=== PATIENT | male | born 1935 | race African-American/Black ===

== ENCOUNTER → 2021-11-05 | Day surgery (SDC) | payer MEDICARE, OTHER ==
[~2021-11-05] MED LIST: ACETAMINOPHEN 500 MG TABLET PO PRN; ALBU2.5V8 IH; ASPI81TA59 PO; ATOR40TA59 PO; BALANCED SALT IRRIG SOLN NO.2 500 ML IO ONE; BENZONATATE 100 MG CAPSULE. PO PRN; BRIMONIDINE 0.2% OPHTH SOLUTION 5ML BOTTLE. OS ONE; CEFUROXIME OPHTH 4 MG/0.4 ML SYRINGE. OS ONE; CHONDROIT-SOD-HYALURONATE KIT. OS ONE; HYDR12.58 PO; IBUPROFEN 200 MG TABLET PO PRN; LIDO/EPI IN BSS OPHTH 2.7 ML SYRINGE. OS ONE; LIDOCAINE 2% JELLY 6ML IN APPLICATOR. ONE; LIDOCAINE 2% JELLY 6ML IN APPLICATOR. OS PRN; MOXIFLOXACIN 0.5% OPHTH SOLUTION 3ML BOTTLE. OS SCH; PHENYLEPHRINE 10% OPHTH SOLUTION 5ML BOTTLE. OS PRN; POVIDONE-IODINE 5% OPHTH SOLUTION 30ML BOTTLE. OS ONE; POVIDONE-IODINE 5% OPHTH SOLUTION 30ML BOTTLE. OS PRN; PROPARACAINE 0.5% OPHTH SOLUTION 15ML BOTTLE. OS ONE; PROPARACAINE 0.5% OPHTH SOLUTION 15ML BOTTLE. OS PRN; TERA5CAP3 PO; prednisoLONE ACETATE 1% OPHTH SUSPENSION 5ML BOTTLE. OS ONE
[2021-11-05] MEDS: PHENYLEPHRINE 2.5% OPHTH SOLUTION 2ML BOTTLE. OS SCH ×3 (07:38→07:56)
[2021-11-05] MEDS: TROPICAMIDE 1% OPHTH SOLUTION 15ML BOTTLE. OS SCH ×3 (07:38→07:56)
[2021-11-05] MEDS: KETOROLAC TROMETHAMINE 0.5% OPHTH SOLUTION BOTTLE. OS SCH ×2 (07:38→07:45)
[2021-11-05] MEDS: TOBRAMYCIN 0.3% OPHTH SOLUTION 5ML BOTTLE. OS SCH ×2 (07:39→07:45)
--- NOTE | 2021-11-05 08:06 | NUR ---
patient noted to have irregular heart rhythm, patient has no symptoms. Notified Anesthesia provider, ordered EKG. Results given to Anesthesia. Provider stated patient should not receive sedation. Patient informed educated about procedure without sedation and is agreeable to proceed. Patient educated regarding signs and symptoms of cardiac insufficiency. Patient verbalized understanding. Patient instructed to make appointment with PCP and report to ED for any signs and symptoms.
--- NOTE | 2021-11-05 09:19 | PDOC4 ---
Cataract i-Stent Injection Surgeon: Zion Dennis MD Date of Procedure: 11/05/21 Preop Diagnosis: Visually significant cataract: Left Eye OS Primary open angle glaucoma: Left eye Postop Diagnosis: Postop Diagnosis: Same Procedure: Phaco w/ posterior chamber IOL: Left Eye OS iStent Inject Trabecular Micro: Left eye Anesthesia: Deep forniceal periocular 2% Lidocaine jelly Ashlee/retro bulbar block with 2% Lidocaine with 0.5% Marcaine Description of Procedure: The risks, benefits, and alternatives were discussed with the patient who elected to proceed. Informed consent was obtained in writing and placed in the chart After anesthetizing the eye topically, the patient was taken to the operating room, and the operative eye was prepped and draped in the usual sterile fashion for ocular surgery. A wire lid speculum was placed. A 1-mm clear corneal paracentesis incision was created with the sideport blade at a position three clock hours clockwise from the temporal cornea. Then 1% non-preserved Lidocaine with epinephrine was injected into the anterior chamber followed by viscoelastic. Cotton-tipped applicators were used to stabilize the globe, and a 2.4 mm keratome was used to create a self-sealing incision in the clear cornea at the temporal limbus. At this point, the head of the patient was titled away from the surgeon and the microscope was angled nasally to facilitate visualization of the nasal angle structures. Viscoelastic was placed on the corneas and a gonioprism was used to implate two iStents into the nasal trabecular meshwork. These were visualized and found to be stable in an appropriate position. The Utrata forceps were used to create a continuous curvilinear capsulorrhexis. Balanced saline solution was injected via cannula beneath the capsulorrhexis edge to hydrodissect the lens nucleus and cortex from the lens capsule. The phacoemulsification handpiece and a chopping instrument were then used to remove the lens nucleus. The remaining epinuclear material and cortex were removed with the irrigation/aspiration handpiece. Viscoelastic was used to re-inflate the lens capsule, and the intraocular lens was injected directly into the capsular bag. The corneal wound edges were hydrated with balanced salt solution on a cannula and the irrigation/aspiration handpiece was used to extract the remaining viscoelastic. Cefuroxime 0.1mg/ml/Vigamox 0.5% was injected into the anterior chamber intracamerally. The wounds were inspected and found to be watertight at an appropriate interocular pressure. The lid speculum and drapes were carefully removed. The patient was taken to the recovery area in good condition. Co-managed patients/postop examination stable for co-management with referring Doctor. Incision [place]: Incision [place]: 180 LRI: LRI: No Patch/Shield with Max/Tob/Eryt Patch/shield with Maxitrol/Tobradex/Erythromycin ointment: Yes No EBL: EBL: None Specimens Collected: Specimens Collected: None ZION DENNIS MD Nov 05, 2021 09:19
[2021-11-05 09:29] VITALS: BP 144/74
--- NOTE | 2021-11-05 11:32 | EKG ---
[address] [address] Test Date: 2021-11-05 Test Time: 07:59:00 Pat Name: SEA BARRIENTOS Department: Room: Gender: M Lead Section Supervisor: FEMI : [id number] Requested By: HARESH HERRERA Order Number: [id number] Reading MD: Chau Ryan Measurements Intervals Thompson Rate: 57 P: WI: QRS: 36 QRSD: 90 T: 57 QT: 386 QTc: 378 Interpretive Statements SINUS RHYTHM MOBITZ TYPE I SECOND DEGREE AVB T ABNORMALITY IN HIGH LATERAL LEADS ABNORMAL ECG RI6.02 No previous ECG available for comparison Electronically Signed On 11-05-2021 12:32:01 [employer] by Chau Ryan
== END | disposition home or self-care (01) ==
LOC: SURG 07:14
PROVIDERS: ATTEND Ophthalmology
DX: H40.1122 Primary open-angle glaucoma, left eye, moderate stage (principal); H25.89 Other age-related cataract; I10 Essential (primary) hypertension; E78.00 Pure hypercholesterolemia, unspecified; J44.9 Chronic obstructive pulmonary disease, unspecified; Z87.891 Personal history of nicotine dependence; Z79.82 Long term (current) use of aspirin; Z79.899 Other long term (current) drug therapy; Z98.890 Other specified postprocedural states
CPT/HCPCS: 0191T; 0376T; 66984; 93005; C1783; V2632

== ENCOUNTER → 2021-11-19 | Day surgery (SDC) | payer MEDICARE, OTHER ==
[~2021-11-19] MED LIST changes: +BRIMONIDINE 0.2% OPHTH SOLUTION 5ML BOTTLE. OD ONE; -BRIMONIDINE 0.2% OPHTH SOLUTION 5ML BOTTLE. OS ONE; +CEFUROXIME OPHTH 4 MG/0.4 ML SYRINGE. OD ONE; -CEFUROXIME OPHTH 4 MG/0.4 ML SYRINGE. OS ONE; +CHONDROIT-SOD-HYALURONATE KIT. OD ONE; -CHONDROIT-SOD-HYALURONATE KIT. OS ONE; +IPRATRPIUM/ALBUTEROL 0.5/2.5MG 3 ML NEBU. NEB PRN; +IV RINGERS SOLUTION,LACTATED 1,000 ML IV SCH; +LIDO/EPI IN BSS OPHTH 2.7 ML SYRINGE. OD ONE; -LIDO/EPI IN BSS OPHTH 2.7 ML SYRINGE. OS ONE; -LIDOCAINE 2% JELLY 6ML IN APPLICATOR. ONE; -LIDOCAINE 2% JELLY 6ML IN APPLICATOR. OS PRN; +MIDAZOLAM HCL PF 2 MG/2 ML VIAL. IV ONE; +MIDAZOLAM HCL PF 2 MG/2 ML VIAL. ONE; -MOXIFLOXACIN 0.5% OPHTH SOLUTION 3ML BOTTLE. OS SCH; +ONDANSETRON PF 4 MG/2 ML VIAL. IV PRN; +PHENYLEPHRINE 10% OPHTH SOLUTION 5ML BOTTLE. OD PRN; -PHENYLEPHRINE 10% OPHTH SOLUTION 5ML BOTTLE. OS PRN; +POVIDONE-IODINE 5% OPHTH SOLUTION 30ML BOTTLE. OD ONE; +POVIDONE-IODINE 5% OPHTH SOLUTION 30ML BOTTLE. OD PRN; -POVIDONE-IODINE 5% OPHTH SOLUTION 30ML BOTTLE. OS ONE; -POVIDONE-IODINE 5% OPHTH SOLUTION 30ML BOTTLE. OS PRN; +PROPARACAINE 0.5% OPHTH SOLUTION 15ML BOTTLE. OD ONE; +PROPARACAINE 0.5% OPHTH SOLUTION 15ML BOTTLE. OD PRN; -PROPARACAINE 0.5% OPHTH SOLUTION 15ML BOTTLE. OS ONE; -PROPARACAINE 0.5% OPHTH SOLUTION 15ML BOTTLE. OS PRN; +prednisoLONE ACETATE 1% OPHTH SUSPENSION 5ML BOTTLE. OD ONE; -prednisoLONE ACETATE 1% OPHTH SUSPENSION 5ML BOTTLE. OS ONE
[2021-11-19] MEDS: KETOROLAC TROMETHAMINE 0.5% OPHTH SOLUTION BOTTLE. OD SCH ×2 (07:30→07:36)
[2021-11-19] MEDS: PHENYLEPHRINE 2.5% OPHTH SOLUTION 2ML BOTTLE. OD SCH ×3 (07:30→07:48)
[2021-11-19] MEDS: TOBRAMYCIN 0.3% OPHTH SOLUTION 5ML BOTTLE. OD SCH ×2 (07:30→07:35)
[2021-11-19] MEDS: TROPICAMIDE 1% OPHTH SOLUTION 15ML BOTTLE. OD SCH ×3 (07:30→07:48)
--- NOTE | 2021-11-19 09:18 | PDOC4 ---
Cataract i-Stent Injection Surgeon: Zion Dennis MD Date of Procedure: 11/19/21 Preop Diagnosis: Visually significant cataract: Right Eye OD Primary open angle glaucoma: Right eye Postop Diagnosis: Postop Diagnosis: Same Procedure: Phaco w/ posterior chamber IOL: Right Eye OD iStent Inject Trabecular Micro: Right eye Anesthesia: Deep forniceal periocular 2% Lidocaine jelly Ashlee/retro bulbar block with 2% Lidocaine with 0.5% Marcaine Description of Procedure: The risks, benefits, and alternatives were discussed with the patient who elected to proceed. Informed consent was obtained in writing and placed in the chart After anesthetizing the eye topically, the patient was taken to the operating room, and the operative eye was prepped and draped in the usual sterile fashion for ocular surgery. A wire lid speculum was placed. A 1-mm clear corneal paracentesis incision was created with the sideport blade at a position three clock hours clockwise from the temporal cornea. Then 1% non -preserved Lidocaine with epinephrine was injected into the anterior chamber followed by viscoelastic. Cotton-tipped applicators were used to stabilize the globe, and a 2.4 mm keratome was used to create a self-sealing incision in the clear cornea at the temporal limbus. At this point, the head of the patient was titled away from the surgeon and the microscope was angled nasally to facilitate visualization of the nasal angle structures. Viscoelastic was placed on the corneas and a gonioprism was used to implate two iStents into the nasal trabecular meshwork. These were visualized and found to be stable in an appropriate position. The Utrata forceps were used to create a continuous curvilinear capsulorrhexis. Balanced saline solution was injected via cannula beneath the capsulorrhexis edge to hydrodissect the lens nucleus and cortex from the lens capsule. The phacoemulsification handpiece and a chopping instrument were then used to remove the lens nucleus. The remaining epinuclear material and cortex were removed with the irrigation/aspiration handpiece. Viscoelastic was used to re-inflate the lens capsule, and the intraocular lens was injected directly into the capsular bag. The corneal wound edges were hydrated with balanced salt solution on a cannula and the irrigation/aspiration handpiece was used to extract the remaining viscoelastic. Cefuroxime 0.1mg/ml/Vigamox 0.5% was injected into the anterior chamber intracamerally. The wounds were inspected and found to be watertight at an appropriate interocular pressure. The lid speculum and drapes were carefully removed. The patient was taken to the recovery area in good condition. Co-managed patients/postop examination stable for co-management with referring Doctor. Incision [place]: Incision [place]: 180 LRI: LRI: No Patch/Shield with Max/Tob/Eryt Patch/shield with Maxitrol/Tobradex/Erythromycin ointment: Yes No EBL: EBL: None Specimens Collected: Specimens Collected: None ZION DENNIS MD Nov 19, 2021 09:18
[2021-11-19 09:28] VITALS: BP 141/75
== END | disposition home or self-care (01) ==
LOC: SURG 07:08
PROVIDERS: ATTEND Ophthalmology
DX: H25.11 Age-related nuclear cataract, right eye (principal); H40.1110 Primary open-angle glaucoma, right eye, stage unspecified; I10 Essential (primary) hypertension; Z98.890 Other specified postprocedural states; Z79.899 Other long term (current) drug therapy
CPT/HCPCS: 0191T; 0376T; 66984; C1783; V2632; J2250